=== PATIENT | female | born 1990 | race Caucasian/White ===

== ENCOUNTER 2018-12-14 05:44 | Inpatient (IN) ==
--- NOTE | 2018-12-06 10:26 | PAT Medication Instructions ---
Medication Instructions Date of Service December 06, 2018 Home Medications PNV cmb#95-ferrous fumarate-FA [] 1 tab PO DAILY DO NOT take the morning of surgery PNV cmb#95-ferrous fumarate-FA [] 1 tab PO DAILY Take morning of surgery NOTHING TO EAT OR DRINK AFTER MIDNIGHT Other Notes If you have any questions please call us at [phone] or [phone] or [phone] or [phone]
--- NOTE | 2018-12-06 11:32 | Anesthesiology Consultation ---
Date of Service December 06, 2018 Assessment & Plan (1) Encounter for pre-operative examination: Chart Review Chart Review: Acceptable Risk for Surgery and Patient seen in Pre Admission Testing Consults Requested none Teaching & Discussion Pre-Anesthesia Teaching/Discussion Notes: Instructed NPO after midnight before surgery, except medications with 15 cc of water. Medication instructions provided according to the PAT guidelines. History Surgery Operation Date: 12/14/18 07:30 Proposed Procedures p Section in LD - Hira Klein MD Height/Weight Height: 4 ft 11 in Weight: 55.7 kg Allergies Allergy/AdvReac Type Severity Reaction Status Date / Time amoxicillin Allergy Intermediate Itchiness Verified 11/29/18 15:50 and vomiting Medications Home Medications Medication Instructions Recorded Confirmed Last Taken PNV cmb#95-ferrous fumarate-FA 1 tab PO DAILY 11/29/18 11/29/18 Unknown [] Past Medical History Medical History GERD (gastroesophageal reflux disease) Gestational diabetes DIET CONTROLLED IBS (irritable bowel syndrome) Exercise / Class Metabolic Activity II 4-5 Yardwork/Stairs/Walk up hill (Walking and swimming daily. Able to climb FOS. Denies CP or SOB with activity. ) Past Surgical History Surgical History History of Hx laparoscopic cholecystectomy Hx of carpal tunnel repair RIGHT Hx of wisdom tooth extraction Past Anesthesia History No Hx of Anesthesia Complications and No Family Hx of Anesthesia Complications History of PONV No Hx of PONV and No Hx of Motion Sickness Social History Smoking Status: Current every day smoker Smoking cigarettes per day: 1PPD Do You Dip or Chew Tobacco: No Hx Alcohol Use: No Hx Substance Use: No substance use type: does not use Review of Systems Patient denies chest pain, shortness of breath, dyspnea on exertion, joint pain, cough, wheezing, palpitations. +Acid Reflux (current symptoms with ) Physical Exam Vital Signs BP: 83/53 P: 84 R: 16 T: 97.9 SPO2: 98% on RA ENMT Thyromental Distance: > or= 3.5 Finger Breadths (4) Mallampati Class: I Neck normal visual inspection and trachea midline; neck extension not limited Respiratory normal respiratory effort Auscultation: lungs clear to auscultation bilaterally Cardiovascular Rate/Rhythm: regular rate and regular rhythm Heart Sounds: + murmur (1/6 systolic murmur) Neurologic moves all extremities Psychiatric Orientation: alert and oriented x 3 Testing Laboratory Results 12/06/18 11:07 Blood Type O Positive 12/06/18 11:07 Antibody Screen NEGATIVE 12/06/18 11:07 Toshia at surgeon's office notified on elevated WBC count.
[2018-12-06 14:16] LABS: Basophils # (auto) 0.01 K/uL (0-0.2); Basophils % (auto) 0.1 %; Eosinophils # (auto) 0.17 K/uL (0-0.5); Eosinophils % (auto) 1.4 %; Hematocrit (blood only) 36.7 % (37-47); Hemoglobin 12.7 g/dL (12.0-16.0); Immature Granulocytes # (auto) 0.03 K/uL (0.00-0.02); Immature Granulocytes % (auto) 0.3 %; Lymphocytes # (auto) 2.79 K/uL (1.2-3.4); Lymphocytes % (auto) 23.4 %; Mean Corpuscular Hemoglobin 30.3 pg (25-34); Mean Corpuscular Hgb Conc 34.6 g/dL (32-36); Mean Corpuscular Volume 87.6 fL (80-100); Mean Platelet Volume 11.3 fL (7.4-10.4); Monocytes # (auto) 0.76 K/uL (0.11-0.59); Monocytes % (auto) 6.4 %; Neutrophils # (auto) 8.14 K/uL (1.4-6.5); Neutrophils % (auto) 68.4 %; Platelet Count 143 K/uL (130-400); RDW Coefficient of Variation 13.9 % (11.5-14.5); RDW Standard Deviation 44.4 fL (36.4-46.3); Red Blood Count 4.19 M/uL (4.2-5.4)
[2018-12-14] MEDS ORDERED: LACTATED RINGER'S 1,000 ML IV SCH ×4 (05:45→09:00)
[2018-12-14] MEDS ORDERED: CEFAZOLIN 2,000 MG in SYRINGE 0 ML IV SCH (06:00)
[2018-12-14] MEDS ORDERED: CITRIC ACID/SODIUM CITRATE 15 ML UDC PO SCH (06:00)
[2018-12-14 06:10] LABS: Basophils # (auto) 0.02 K/uL (0-0.2); Basophils % (auto) 0.2 %; Eosinophils # (auto) 0.21 K/uL (0-0.5); Eosinophils % (auto) 1.7 %; Hematocrit (blood only) 36.7 % (37-47); Hemoglobin 12.9 g/dL (12.0-16.0); Immature Granulocytes # (auto) 0.04 K/uL (0.00-0.02); Immature Granulocytes % (auto) 0.3 %; Lymphocytes # (auto) 3.07 K/uL (1.2-3.4); Lymphocytes % (auto) 24.3 %; Mean Corpuscular Hemoglobin 30.8 pg (25-34); Mean Corpuscular Volume 87.6 fL (80-100); Mean Platelet Volume 11.5 fL (7.4-10.4); Monocytes # (auto) 0.86 K/uL (0.11-0.59); Monocytes % (auto) 6.8 %; Neutrophils # (auto) 8.43 K/uL (1.4-6.5); Neutrophils % (auto) 66.7 %; Platelet Count 153 K/uL (130-400); RDW Coefficient of Variation 13.8 % (11.5-14.5); RDW Standard Deviation 44.1 fL (36.4-46.3); Red Blood Count 4.19 M/uL (4.2-5.4); White Blood Count 12.63 K/uL (4.8-10.8)
[2018-12-14 06:25] LABS: Mean Corpuscular Hgb Conc 35.1 g/dL (32-36)
[2018-12-14] MEDS ORDERED: LACTATED RINGER'S 500 ML IV PRN (07:23)
[2018-12-14] MEDS ORDERED: KETOROLAC 30 MG/ML VIAL IV PRN (07:23)
[2018-12-14] MEDS ORDERED: MoRPHine SULFATE PF 1 MG/ML 10 ML AMP/VIAL INT SPINAL ONE (07:23)
[2018-12-14] MEDS ORDERED: NALOXONE HCL 0.08 MG in SYRINGE 1.8 ML IV PRN (07:23)
[2018-12-14] MEDS ORDERED: DiphenhydrAMINE HCL 50 MG/ML VIAL IV PRN ×2 (07:23)
[2018-12-14] MEDS ORDERED: METOCLOPRAMIDE HCL 5 MG in SODIUM CHLORIDE 0.9% 50 ML IV PRN (07:23)
[2018-12-14] MEDS ORDERED: NALOXONE HCL 1 MG in SODIUM CHLORIDE 0.9% 1000ML 1,000 ML IV PRN (07:23)
[2018-12-14] MEDS ORDERED: NALBUPHINE HCL INJ 10 MG/ML AMP IV PRN (07:23)
[2018-12-14] MEDS ORDERED: MoRPHine SULFATE 2 MG/ML CARP IV PRN (07:23)
[2018-12-14] MEDS ORDERED: NALOXONE HCL 0.4 MG/1 ML VIAL/CARP IV PRN (07:23)
[2018-12-14] MEDS ORDERED: PROMETHAZINE HCL 6.25 MG in SODIUM CHLORIDE 0.9% 50 ML IV PRN (07:23)
[2018-12-14] MEDS ORDERED: HYDROmorphone INJ 0.5 MG/0.5 ML SYR IV PRN (07:23)
[2018-12-14] MEDS ORDERED: ePHEDrine sulfate 50 MG/ML AMP IV PRN (07:23)
[2018-12-14] MEDS ORDERED: ONDANSETRON INJ 2 MG/ML 2 ML VIAL IV PRN (07:23)
--- NOTE | 2018-12-14 07:25 | History & Physical Bridge Note ---
Date of Service December 14, 2018 History & Physical Bridge Note I have examined the patient, reviewed the History & Physical and in the interval since the performance of the History & Physical I have noted the following changes of clinical significance: no changes noted
[2018-12-14] MEDS ORDERED: MoRPHine SULFATE PF 1 MG/ML 10 ML AMP/VIAL ONE (07:26)
[2018-12-14] MEDS ORDERED: fentaNYL citrate 100 MCG/2 ML VIAL ONE (07:26)
[2018-12-14] MEDS ORDERED: DC INTRASPINAL MORPHINE SCH (07:30)
[2018-12-14] MEDS ORDERED: SODIUM CHLORIDE 0.9% 1000ML 1,000 ML IV SCH (07:30)
[2018-12-14] MEDS ORDERED: NO NARCOTICS OR SEDATIVES SCH (07:30)
[2018-12-14] MEDS ORDERED: OXYTOCIN 10 UNITS/ML VIAL ONE (08:38)
[2018-12-14] MEDS ORDERED: KETOROLAC 30 MG/ML VIAL ONE (08:38)
[2018-12-14] MEDS ORDERED: ONDANSETRON INJ 2 MG/ML 2 ML VIAL ONE (08:38)
[2018-12-14] MEDS ORDERED: HYDROCORTISONE ACETATE 25 MG SUPP PR PRN (08:54)
[2018-12-14] MEDS ORDERED: SUPERCREAM 0.870% 15 GM JAR EXT PRN (08:54)
[2018-12-14] MEDS ORDERED: MAGNESIUM HYDROXIDE SUSP 30 ML UDC PO PRN (08:54)
[2018-12-14] MEDS ORDERED: BENZOCAINE 20% AER SPR 82.5 GM CAN EXT PRN (08:54)
[2018-12-14] MEDS ORDERED: SENNA 8.6 MG TAB PO PRN (08:54)
[2018-12-14] MEDS ORDERED: DIPHTHERIA/TETANUS/PERTUSSIS 0.5 ML SYR/VIAL IM ONE (08:54)
--- NOTE | 2018-12-14 08:56 | Post Operative Brief Note ---
Immediate Post Op Note v1 Date of Surgery December 14, 2018 Pre & Post Diagnosis Operation Date: 12/14/18 07:30 Pre-Op Diagnosis: 1. Patient Desires Repeat . Post-Op Diagnosis: 1. Patient Desires Repeat . Procedure Operation Date: 12/14/18 07:30 Actual Procedures Repeat Section in LD Live Male at 8:10am.(Bilateral) - Hira Garcia MD Surgeon Hira Klein MD Stock Room Manager ROSALIND Jolly Estimated Blood Loss 500 Findings Consistent with Post-Op Diagnosis Drains Henao Catheter (patent and draining clear yellow urine.) Anesthesia Type Spinal Complications none Disposition Accompanied Patient To Recovery: Yes Disposition: L&D Overlapping Procedure I was present for: the critical portions of procedure. (I WAS PRESENT FOR THE ENTIRE PROCEDURE)
--- NOTE | 2018-12-14 10:54 | Anesthesiology Progress Note ---
Date of Service December 14, 2018 Anesthesia Post Procedure Vital Signs Vital Signs: Temp Pulse Resp BP Pulse Ox 12/14/18 10:50 63 97 12/14/18 10:45 59 L 94/54 L 98 12/14/18 10:40 67 97 12/14/18 10:35 62 88/62 L 97 12/14/18 10:30 64 97 12/14/18 10:25 66 20 96 12/14/18 10:24 81 93/60 L 12/14/18 10:20 64 96 12/14/18 10:15 60 94 12/14/18 10:14 63 89/56 L 12/14/18 10:10 58 L 96 12/14/18 10:05 61 97 12/14/18 10:04 74 86/55 L 12/14/18 10:00 56 L 98 12/14/18 09:57 60 88/57 L 12/14/18 09:55 36.4 C L 65 20 98 12/14/18 09:50 60 96 12/14/18 09:45 36.4 C L 75 20 92/71 L 97 12/14/18 09:40 62 98 12/14/18 09:35 61 20 90/65 L 98 12/14/18 09:30 62 98 12/14/18 09:25 62 20 98/57 L 97 12/14/18 09:20 63 98 12/14/18 09:15 54 L 20 98 12/14/18 09:14 74 87/52 L 12/14/18 09:10 62 98 12/14/18 09:05 62 20 91/50 L 99 12/14/18 09:00 60 98 12/14/18 08:55 35.2 C L 61 20 97/54 L 98 12/14/18 06:00 36.8 C 88 18 98/68 L 12/14/18 05:52 36.8 C 88 18 98/68 L Transfer of Care Handoff Completed per policy Notes Mental Status: alert / awake / arousable Nausea / Vomiting: adequately controlled Pain: adequately controlled Airway Patency, RR, SpO2: stable & adequate BP & HR: stable & adequate Hydration State: stable & adequate Neuraxial Anesthesia: was administered and sensory block is resolving Anesthetic Complications: no major complications apparent
[2018-12-14] MEDS: OXYTOCIN 20 UNITS in LACTATED RINGER'S 1,000 ML IV SCH ×2 (11:10→19:26)
[2018-12-14] MEDS: MEPERIDINE HCL 25 MG/ML CARP IV PRN ×3 (11:46→20:13)
--- NOTE | 2018-12-14 12:29 | Operative Report ---
DATE OF OPERATION: 12/14/2018 PREOPERATIVE DIAGNOSIS: The patient is a 27-year-old G2, P1-0-0-1 at 39 weeks and 1 day of gestation, scheduled for repeat , declined TOLAC/. POSTOPERATIVE DIAGNOSIS: The patient is a 27-year-old G2, P1-0-0-1 at 39 weeks and 1 day of gestation, scheduled for repeat , declined TOLAC/. PROCEDURE: Repeat low transverse with Pfannenstiel skin incision and delivery of a live male at 8:10 a.m. SURGEON: Hira Klein MD FABRICATION AND LAYOUT CRAFTSMAN: ROSALIND Jolly ESTIMATED BLOOD LOSS: 500 ml FLUIDS: 1200 mL of lactated Ringer. DRAINS: Henao catheter drained 100 mL of clear urine. ANESTHESIA: Spinal, Adalid Thomas MD COMPLICATIONS: None. FINDINGS: Baby was a viable male infant delivered at 8:10 a.m., cephalic presentation, weight was 3475 grams. Apgars 8/9. There was a loose nuchal cord around the neck x1. Maternal findings, normal uterus, fallopian tubes and ovaries. There was scarring/ adhesions in the rectus fascia and visceral peritoneum. DESCRIPTION OF PROCEDURE: The patient was taken to the OR where spinal anesthesia was given without difficulty. She was placed on supine position with a leftward tilt. She was prepared and draped in usual sterile fashion A Pfannenstiel skin incision was made from the old incision scar and carried through to the underlying layer of fascia with the tip of Bovie. Fascia was incised in the midline and incision was extended laterally with the help of Perkins scissors as well as tip of Bovie due to dense scarring. Upper aspect of the fascial incision was then grasped with 2 Andres clamps, elevated, underlying rectus muscle dissected off sharply with Perkins scissors and the lower aspect of the fascial incision was grasped with 2 Andres clamps, elevated, underlying rectus muscles were dissected off sharply with Perkins scissors. The rectus muscles were adhered in the midline. They were held with Allis clamps and then incised in the midline with a scalpel and then bluntly with the finger. Peritoneum was identified, entered bluntly and then carefully the adhesion between the peritoneum and the uterine wall were lysed with the tip of Metzenbaum scissors while visualization of the bladder and bowels. Then enough space in the abdominal wall was made. It was stretched. Bladder blade was inserted. Vesicouterine peritoneum was identified, grasped with pickups, entered sharply with Metzenbaum scissors and a bladder flap was created digitally as well as sharply with the tip of Metzenbaum scissors. Bladder blade was reinserted and lower uterine segment was incised in transverse fashion. Incision was extended laterally with the help of bandage scissors. Membranes were ruptured. Clear fluid was obtained. Baby's head was delivered without difficulty. The shoulders were delivered with minimal traction. There was a loose nuchal cord around the neck x1 which was reduced and the baby was delivered. Mouth and nose were suctioned. Baby was dried and the baby was vigorously crying and moving. Then cord was clamped and cut at 1-minute delay and baby was handed off to the waiting drier operator helper team, Dr. Andres. Then placenta was delivered manually as intact and complete. Uterus was exteriorized, cleared of all clots and debris. The incision was repaired with 0 Vicryl in a running locked fashion and a second imbricating layer was placed with another 0 Vicryl in a running locked fashion and the uterus was firm and contracted. There was minimal oozing close to the left corner of the incision which was controlled with [id number] stitch with 0 Vicryl and then the incision was inspected again for hemostasis and it was hemostatic. Cul-de-sac was irrigated with warm normal saline and suctioned. Uterus was returned to the abdomen. The pelvis was irrigated with warm normal saline and suctioned and the gutters were cleaned off all clots and debris and incision was checked multiple times to be hemostatic. The parietal peritoneum was reapproximated with 0 Vicryl in a running fashion and the rectus muscles were reapproximated with the same suture in a running fashion. Excellent hemostasis was achieved on the rectus muscles and under the fascia. Rectus fascia was reapproximated with 0 Vicryl in a running fashion and the skin was closed with 4-0 Monocryl in a subcuticular fashion. The patient tolerated the procedure well. Sponge, lap, needle count was correct x3. No complications happened. I was present during whole surgery with my PA and the patient was given 2 grams of cefazolin before surgery. She was taken to recovery room in stable condition. I attest to the content of the Intraoperative Record and any orders documented therein. Any exceptions are noted below. MTDD
[2018-12-14] MEDS: SIMETHICONE 80 MG CHEW PO SCH ×2 (16:59→20:41)
[2018-12-14] MEDS: DOCUSATE SODIUM 100 MG CAP PO SCH (20:41)
[2018-12-15] MEDS ORDERED: KETOROLAC 30 MG/ML VIAL IV PRN (01:26)
[2018-12-15] MEDS ORDERED: DiphenhydrAMINE HCL 50 MG/ML VIAL IV PRN (01:26)
[2018-12-15] MEDS ORDERED: PROMETHAZINE HCL 25 MG in SODIUM CHLORIDE 0.9% 50 ML IV PRN (01:26)
[2018-12-15] MEDS ORDERED: ONDANSETRON INJ 2 MG/ML 2 ML VIAL IV PRN (01:26)
[2018-12-15] MEDS: IBUPROFEN 600 MG TAB PO PRN ×3 (06:39→18:30)
[2018-12-15] MEDS: SIMETHICONE 80 MG CHEW PO SCH ×5 (08:18→20:05)
[2018-12-15] MEDS: OXYCODONE/ACETAMINOPHEN 5mg/325mg TAB PO PRN ×3 (08:18→18:30)
[2018-12-15] MEDS: DOCUSATE SODIUM 100 MG CAP PO SCH ×2 (08:18→20:05)
[2018-12-15] MEDS: FERROUS SULFATE 325 MG TAB PO SCH (08:18)
[2018-12-15] MEDS: PRENATAL VITAMIN 1 TAB PO SCH (08:18)
[2018-12-15 08:52] LABS: Basophils # (auto) 0.02 K/uL (0-0.2); Basophils % (auto) 0.1 %; Eosinophils # (auto) 0.16 K/uL (0-0.5); Eosinophils % (auto) 1.2 %; Hematocrit (blood only) 35.9 % (37-47); Hemoglobin 12.4 g/dL (12.0-16.0); Immature Granulocytes # (auto) 0.04 K/uL (0.00-0.02); Immature Granulocytes % (auto) 0.3 %; Lymphocytes # (auto) 2.03 K/uL (1.2-3.4); Lymphocytes % (auto) 14.6 %; Mean Corpuscular Hemoglobin 30.2 pg (25-34); Mean Corpuscular Hgb Conc 34.5 g/dL (32-36); Mean Corpuscular Volume 87.3 fL (80-100); Monocytes # (auto) 0.57 K/uL (0.11-0.59); Monocytes % (auto) 4.1 %; Neutrophils # (auto) 11.05 K/uL (1.4-6.5); Neutrophils % (auto) 79.7 %; Platelet Count 140 K/uL (130-400); RDW Coefficient of Variation 13.6 % (11.5-14.5); RDW Standard Deviation 43.7 fL (36.4-46.3); Red Blood Count 4.11 M/uL (4.2-5.4); White Blood Count 13.87 K/uL (4.8-10.8)
--- NOTE | 2018-12-15 09:22 | Surgery Progress Note ---
Date of Service December 15, 2018 Subjective doing fine passing gas tolerating diet well OOB Physical Exam Constitutional: WD/WN, vitals as above comfortable incision clean, dry and intact abdomen soft and non-tender no edema neg Olvin's Results & Data Vital Signs (Past 12 Hours) Vital Signs Temp Pulse Resp BP Pulse Ox 12/15/18 08:00 36.8 C 73 18 87/55 L 94 12/15/18 03:15 36.6 C 60 18 96/64 L 96 12/15/18 01:42 16 96 12/15/18 00:30 16 94 12/14/18 23:55 36.8 C 79 16 90/52 L 96 12/14/18 22:00 18 96
[2018-12-15] MEDS ORDERED: BISACODYL 5 MG TABEC PO SCH (20:00)
[2018-12-16] MEDS: IBUPROFEN 600 MG TAB PO PRN ×3 (02:48→15:04)
[2018-12-16] MEDS: OXYCODONE/ACETAMINOPHEN 5mg/325mg TAB PO PRN ×3 (02:48→15:05)
[2018-12-16 07:03] LABS: Hematocrit (blood only) 32.2 % (37-47); Hemoglobin 11.1 g/dL (12.0-16.0)
[2018-12-16] MEDS: PRENATAL VITAMIN 1 TAB PO SCH (08:05)
[2018-12-16] MEDS: DOCUSATE SODIUM 100 MG CAP PO SCH (08:05)
[2018-12-16] MEDS: SIMETHICONE 80 MG CHEW PO SCH ×2 (08:06→15:04)
[2018-12-16] MEDS: FERROUS SULFATE 325 MG TAB PO SCH (08:06)
[2018-12-16] MEDS ORDERED: BISACODYL 10 MG SUPP PR PRN (08:54)
--- NOTE | 2018-12-16 09:01 | Obstetrical Progress Note ---
Date of Service December 16, 2018 Subjective Patient is seen and examined. She feels well, no complaints other than feeling gassy Pain is under control with oral meds. Ambulating without dizziness Voiding without difficulty Tolerating regular diet with out N&V Flatus + BM neg Bleeding is minimal No fever/ chills/ CP/ SOB/ N&V/ Leg pain Bottle feeding without problems Baby is being discharged today she likes to be discharged too Vital Signs Temp Pulse Resp BP Pulse Ox 12/15/18 23:30 36.5 C 74 18 97/62 L 12/15/18 15:46 36.8 C 78 18 94/61 L 95 Lab Results 12/06/18 12/06/18 12/14/18 Range/Units 11:07 11:07 06:02 WBC 11.90 H (4.8-10.8) K/uL RBC 4.19 L (4.2-5.4) M/uL Hgb 12.7 (12.0-16.0) g/dL Hct 36.7 L (37-47) % MCV 87.6 (80-100) fL MCH 30.3 (25-34) pg MCHC 34.6 (32-36) g/dL RDW Std Deviation 44.4 (36.4-46.3) fL RDW Coeff of Fran 13.9 (11.5-14.5) % Plt Count 143 (130-400) K/uL MPV 11.3 H (7.4-10.4) fL Immature Gran % (Auto) 0.3 % Neut % (Auto) 68.4 % Lymph % (Auto) 23.4 % Cooper % (Auto) 6.4 % Eos % (Auto) 1.4 % Baso % (Auto) 0.1 % Immature Gran # (Auto) 0.03 H (0.00-0.02) K/uL Neut # (Auto) 8.14 H (1.4-6.5) K/uL Lymph # (Auto) 2.79 (1.2-3.4) K/uL Cooper # (Auto) 0.76 H (0.11-0.59) K/uL Eos # (Auto) 0.17 (0-0.5) K/uL Baso # (Auto) 0.01 (0-0.2) K/uL Blood Type O Positive O Positive Antibody Screen NEGATIVE NEGATIVE 12/14/18 12/15/18 12/16/18 Range/Units 06:02 08:42 06:39 WBC 12.63 H 13.87 H (4.8-10.8) K/uL RBC 4.19 L 4.11 L (4.2-5.4) M/uL Hgb 12.9 12.4 11.1 L (12.0-16.0) g/dL Hct 36.7 L 35.9 L 32.2 L (37-47) % MCV 87.6 87.3 (80-100) fL MCH 30.8 30.2 (25-34) pg MCHC 35.1 34.5 (32-36) g/dL RDW Std Deviation 44.1 43.7 (36.4-46.3) fL RDW Coeff of Fran 13.8 13.6 (11.5-14.5) % Plt Count 153 140 (130-400) K/uL MPV 11.5 H 11.0 H (7.4-10.4) fL Immature Gran % (Auto) 0.3 0.3 % Neut % (Auto) 66.7 79.7 % Lymph % (Auto) 24.3 14.6 % Cooper % (Auto) 6.8 4.1 % Eos % (Auto) 1.7 1.2 % Baso % (Auto) 0.2 0.1 % Immature Gran # (Auto) 0.04 H 0.04 H (0.00-0.02) K/uL Neut # (Auto) 8.43 H 11.05 H (1.4-6.5) K/uL Lymph # (Auto) 3.07 2.03 (1.2-3.4) K/uL Cooper # (Auto) 0.86 H 0.57 (0.11-0.59) K/uL Eos # (Auto) 0.21 0.16 (0-0.5) K/uL Baso # (Auto) 0.02 0.02 (0-0.2) K/uL Blood Type Antibody Screen PE: General: Alert, orientedx3, NAD CVS: S1S2 RRR Lungs; CTAB Abd: soft, NT, ND, BS+, fundus firm, below Umbilicus Incision: Clean, dry, intact Perineum intact, Lochia rubra minimal Ext; NT, no edema AP: 27 yo s/p C Section, pod# 1 VSS Afebrile doing well Continue routine postop care Encourage ambulation, PO intake Bowel regimen today before d/c All questions were answered D/C home, f/u in office Results & Data Vital Signs (Past 12 Hours) Vital Signs Temp Pulse Resp BP 12/15/18 23:30 36.5 C 74 18 97/62 L
--- NOTE | 2018-12-20 22:57 | Discharge Summary ---
DETAILS OF ADMISSION: The patient is a 27-year-old G2, P1-0-0-1 at 39 weeks and 1 day of gestation, who has a history of prior and declined TOLAC/, desires repeat . She was admitted on 12/14/2018 for scheduled repeat . She had the surgery and delivered a viable male infant at 8:10 a.m. without any complications. See dictated OP note for details. On postop period, the patient was doing well. Vital signs stable, afebrile. Urine output was borderline. She was given IV fluids and it improved. Henao was discontinued next day. She ambulated, tolerated regular diet, passing gas. Vital signs stable, afebrile. On postop day #2, the patient was doing well. Vital signs stable, afebrile. H and H was stable at 11.1/32.2. She was ambulating without dizziness, tolerating regular diet, passing gas. She has not moved her bowels. She was given Dulcolax and MiraLax, and she was discharged after she moved her bowels. Discharge instructions were given. Prescriptions were written for pain. She is to be seen in office in a week for incision check. All questions were answered.
== END 2018-12-16 15:30 | disposition home or self-care (01) | DRG 788 ==
LOC: 4S1 05:44 → EDSTATUS 07:30 → 4S2 11:15